=== PATIENT | female | born 1965 | race Caucasian/White ===

== ENCOUNTER → 2020-10-09 | Day surgery (SDC) | payer OTHER ==
[~2020-10-09] MED LIST: ALENDRONATE SOD70 MG PO; BRINTELLIX20 MG PO; CRESTOR20 MG PO; DONEPEZIL HCL5 MG PO; FARXIGA10 MG PO; GLUCOPHAGE 500500 MG PO; INDERAL TAB 2020 MG PO; LEVOTHYROXINE100 MCG PO; LO-DOSE ASPIRIN81 MG PO; SUMATRIPTAN SU100 MG PO; TROKENDI XR100 MG PO; VASCEPA1 GM PO; WELLBUTRIN SR150 M1 PO
== END | disposition home or self-care (01) ==
LOC: OR 06:13
DX: Z12.11 Encounter for screening for malignant neoplasm of colon (principal); C50.912 Malignant neoplasm of unspecified site of left female breast; C50.911 Malignant neoplasm of unspecified site of right female breast; I12.9 Hypertensive chronic kidney disease with stage 1 through stage 4 chronic kidney disease, or unspecified chronic kidney disease; E11.22 Type 2 diabetes mellitus with diabetic chronic kidney disease; N18.2 Chronic kidney disease, stage 2 (mild); F32.9 Major depressive disorder, single episode, unspecified; F41.9 Anxiety disorder, unspecified; E78.1 Pure hyperglyceridemia; E78.5 Hyperlipidemia, unspecified; E03.9 Hypothyroidism, unspecified; G47.00 Insomnia, unspecified; G43.909 Migraine, unspecified, not intractable, without status migrainosus; M81.0 Age-related osteoporosis without current pathological fracture; E53.8 Deficiency of other specified B group vitamins; E55.9 Vitamin D deficiency, unspecified; Z79.84 Long term (current) use of oral hypoglycemic drugs; Z79.899 Other long term (current) drug therapy; Z88.1 Allergy status to other antibiotic agents; Z88.8 Allergy status to other drugs, medicaments and biological substances; Z20.822 Contact with and (suspected) exposure to COVID-19
CPT/HCPCS: 82962; J2001; J2704; J7030

== ENCOUNTER 2021-01-01 20:04 | Emergency (ER) | payer OTHER ==
[2021-01-01 21:11] LABS: HEMOGLOBIN 14.5 gm/dl (12.3-15.3); RED BLOOD COUNT 4.6 M/UL (4.00-5.10); WHITE BLOOD COUNT 5.1 K/UL (4.5-11.0)
[2021-01-01 21:31] LABS: BUN/CREATININE RATIO 17 (0-10)
[2021-01-02] MEDS ORDERED: ASPIRIN CHEWABL81 MG PO (01:08)
== END 2021-01-02 01:23 | disposition home or self-care (01) ==
LOC: ER1 20:04
PROVIDERS: Family Medicine
DX: R07.9 Chest pain, unspecified (principal); E78.5 Hyperlipidemia, unspecified; I10 Essential (primary) hypertension
CPT/HCPCS: 71045; 80053; 82550; 82553; 83874; 84484; 85025; 85379; 93005; 99285

== ENCOUNTER → 2021-01-18 | Outpatient (CLI) | payer OTHER ==
[~2021-01-18] MED LIST changes: +ASPIRIN CHEWABL81 MG PO
== END ==
LOC: ECHO 12:00 → NM 13:00
DX: R07.9 Chest pain, unspecified (principal); E11.9 Type 2 diabetes mellitus without complications; E78.5 Hyperlipidemia, unspecified; I10 Essential (primary) hypertension
CPT/HCPCS: ECHO; 78452; 93017; 93306; A9502

== ENCOUNTER → 2021-03-30 | Day surgery (SDC) | payer OTHER ==
[~2021-03-30] MED LIST changes: +ARIMIDEX 1 MG TA1 MG PO; +BRINTELLIX5 MG PO
== END | disposition home or self-care (01) ==
LOC: OR 07:11
DX: R11.2 Nausea with vomiting, unspecified (principal); E03.9 Hypothyroidism, unspecified; M81.0 Age-related osteoporosis without current pathological fracture; G43.909 Migraine, unspecified, not intractable, without status migrainosus; E78.1 Pure hyperglyceridemia; I12.9 Hypertensive chronic kidney disease with stage 1 through stage 4 chronic kidney disease, or unspecified chronic kidney disease; N18.2 Chronic kidney disease, stage 2 (mild); E11.22 Type 2 diabetes mellitus with diabetic chronic kidney disease; Z88.6 Allergy status to analgesic agent; Z88.1 Allergy status to other antibiotic agents; Z79.82 Long term (current) use of aspirin; Z79.84 Long term (current) use of oral hypoglycemic drugs; Z20.822 Contact with and (suspected) exposure to COVID-19
CPT/HCPCS: 82962; J2704; J3010; J7030

== ENCOUNTER → 2021-06-15 | Outpatient (CLI) | payer OTHER | LOC: US 09:30 | DX: R10.9 Unspecified abdominal pain (principal); K76.0 Fatty (change of) liver, not elsewhere classified | CPT/HCPCS: 76705 ==

== ENCOUNTER → 2021-07-13 | Outpatient (CLI) | payer MEDICARE | LOC: NM 09:00 | DX: R10.9 Unspecified abdominal pain (principal); R11.2 Nausea with vomiting, unspecified | CPT/HCPCS: 78227; A9537 ==

== ENCOUNTER → 2021-09-20 | Outpatient (CLI) | payer MEDICARE ==
[~2021-09-20] VITALS: Ht 161.3 cm; Wt 78.9 kg
== END ==
LOC: EROP 09:47
DX: U07.1 COVID-19 (principal); Z23 Encounter for immunization
CPT/HCPCS: M0222; Q0222